=== PATIENT | female | born 1950 | race Hispanic/Latino ===

== ENCOUNTER 2023-10-14 06:43 | Day surgery (SDC) | payer OTHER, MEDICARE ==
[2023-10-14] VITALS (12 sets, daily range): BP systolic 120–153; BP diastolic 66–74; PULSE 74–83; RESP 14–16
[~2023-10-14] VITALS: Ht 144.8 cm; Wt 69.9 kg
[~2023-10-14 06:43] MED LIST: AMLO2.5T4 PO; BACL5TAB PO; ESOM40CA54 PO; FAMO40TA7 PO; FLUT1AER IH; GABA-529 PO; LEVO25CA4 PO; LORA10TA7 PO; MONT-39 PO; NORT10CA2 PO; ROSU20TA73 PO
[2023-10-14] MEDS: 0.9%NACL 1000ML 1,000 ML IV ONE (08:02)
[2023-10-14] MEDS ORDERED: PROPOFOL 10 MG/ML 20ML VIAL IV ONE (09:49)
[2023-10-14] MEDS ORDERED: LIDOCAINE HCL 1% 20 ML VIAL ONE (09:49)
== END 2023-10-14 11:20 | disposition home or self-care (01) ==
LOC: DAH 06:43 → ENDO 06:43
PROVIDERS: ATTEND Internal Medicine Gastroenterology
DX: R13.10 Dysphagia, unspecified (principal); K44.9 Diaphragmatic hernia without obstruction or gangrene; K29.70 Gastritis, unspecified, without bleeding; K21.00 Gastro-esophageal reflux disease with esophagitis, without bleeding; K76.0 Fatty (change of) liver, not elsewhere classified; K57.30 Diverticulosis of large intestine without perforation or abscess without bleeding; I10 Essential (primary) hypertension; E78.5 Hyperlipidemia, unspecified; E03.9 Hypothyroidism, unspecified; Z79.899 Other long term (current) drug therapy; Z86.010 Personal history of colon polyps; Z98.51 Tubal ligation status; Z90.49 Acquired absence of other specified parts of digestive tract; Z98.890 Other specified postprocedural states
CPT/HCPCS: 43239; 43248; J7030 ×2; J2704; A4620; A4215; A4223; A7002; A4222; A4221; A4663; A4606; J3490

== ENCOUNTER 2024-01-04 11:24 | Emergency (ER) | payer OTHER, MEDICARE ==
[~2024-01-04] VITALS: Ht 144.8 cm; Wt 70.3 kg
[~2024-01-04 11:24] MED LIST changes: -ESOM40CA54 PO; +ESOM40CA66 PO
[2024-01-04] MEDS: ACETAMINOPHEN 500 MG TABLET PO ONE (13:03)
[2024-01-04 14:23] VITALS: BP 164/81; PULSE 77; RESP 18; O2SAT 98
[2024-01-04 14:55] LABS: INFLUENZA TYPE A Negative For Type A (NEGATIVE); INFLUENZA TYPE B Negative For Type B (NEGATIVE); RAPID GROUP A STREP negative (NEGATIVE)
[2024-01-04 14:56] LABS: COVID19 (SARS ANTIGEN RAPID) PRESUMPTIVE NEGATIVE (NEGATIVE)
[2024-01-04] MEDS ORDERED: AZIT250T9 PO (15:16)
== END 2024-01-04 15:19 | disposition home or self-care (01) ==
LOC: EDH 11:24
DX: J02.9 Acute pharyngitis, unspecified (principal); B34.9 Viral infection, unspecified; J44.9 Chronic obstructive pulmonary disease, unspecified; I10 Essential (primary) hypertension; Z79.51 Long term (current) use of inhaled steroids; Z88.0 Allergy status to penicillin; Z20.822 Contact with and (suspected) exposure to COVID-19
CPT/HCPCS: 87426; 87804; 87880

== ENCOUNTER → 2025-04-11 | Outpatient (CLI) | payer OTHER, MEDICARE ==
[~2025-04-11] MED LIST changes: +AZIT250T9 PO; -LEVO25CA4 PO; +LEVO25CA5 PO; -ROSU20TA73 PO; +ROSU20TA98 PO
[2025-04-11 09:49] LABS: IMMATURE GRANULOCYTE ABSOLUTE 0.03 K/uL (0-1); NUCLEATED RED BLOOD CELLS 0.0 % (0.0-0.19); PLATELET COUNT (AUTO) 293 K/uL (130-400); RED BLOOD CELL COUNT(AUTO) 4.30 MIL/uL (4.00-5.50); RED CELL DISTRIBUTION WIDTH 13.9 % (11.0-15.5); WHITE BLOOD COUNT (AUTO) 8.9 K/uL (4.8-10.8)
[2025-04-11 10:06] LABS: ASPARTATE AMINOTRANSFERASE 26.0 U/L (10-37); CREATININE 0.9 mg/dL (0.5-1.0); GLOMERULAR FILTR. RATE CALC 67.0 mL/min (>90); GLUCOSE,RANDOM 107.0 mg/dL (70-105); SODIUM SERUM 142.0 mmol/L (136-145); TOTAL PROTEIN, SERUM 7.5 g/dL (6.0-8.3); UREA NITROGEN, BLOOD 14.0 mg/dL (7-18)
== END | disposition home or self-care (01) ==
LOC: LAB 08:55
PROVIDERS: ATTEND Internal Medicine Gastroenterology
DX: R10.30 Lower abdominal pain, unspecified (principal)
CPT/HCPCS: 36415; 80053; 85025

== ENCOUNTER → 2025-04-18 | Outpatient (CLI) | payer OTHER, MEDICARE ==
[~2025-04-18] MED LIST changes: +IOHEXOL-350 75 ML VIAL IV ONE
--- NOTE | 2025-04-19 13:02 | HMCIMG ---
EXAM: CT Abdomen and Pelvis with IV contrast CLINICAL HISTORY: Lower abdominal pain, unspecified TECHNIQUE: Axial computed tomography images of the abdomen and pelvis with intravenous contrast. CONTRAST: with intravenous contrast. COMPARISON: None provided. FINDINGS: LUNG BASES: Extensive interlobular and intralobular septal thickening with tiny cystic areas are visualised in visualized sections of both lungs, causing architectural distortion. No pleural effusions are seen. LIVER: Unremarkable. GALLBLADDER AND BILE DUCTS: The gallbladder surgically absent. No biliary ductal dilatation is evident. PANCREAS: Unremarkable. SPLEEN: Unremarkable. ADRENAL GLANDS: Unremarkable. KIDNEYS, URETERS, AND BLADDER: The kidneys appear within normal limits. There is no hydronephrosis or hydroureter. No urinary calculi are seen. STOMACH AND BOWEL: Unremarkable appearance of the stomach and bowel. No evidence of bowel obstruction. No evidence suggesting enteritis or colitis. APPENDIX: Normal appendix. PERITONEUM: No free fluid. No free air. Small fat-containing umbilical hernia. LYMPH NODES: No lymphadenopathy is evident. REPRODUCTIVE: Unremarkable as visualized. VASCULATURE: Atherocalcific changes along the visualized aorta. No evidence of abdominal aortic aneurysm. BONES: Degenerative changes along the visualized spine. No aggressive appearing osseous lesion. No acute osseous pathology evident. IMPRESSION: 1. Extensive interlobular and intralobular septal thickening with tiny cystic areas in visualized lung sections, suggesting interstitial lung disease. 2. No acute abdominal or pelvic findings. /[place]
== END | disposition home or self-care (01) ==
LOC: RAH 07:57
PROVIDERS: ATTEND Internal Medicine Gastroenterology
DX: K42.9 Umbilical hernia without obstruction or gangrene (principal); J98.4 Other disorders of lung; I70.0 Atherosclerosis of aorta; M47.817 Spondylosis without myelopathy or radiculopathy, lumbosacral region; R10.30 Lower abdominal pain, unspecified; Z90.49 Acquired absence of other specified parts of digestive tract
CPT/HCPCS: 74177; Q9967